=== PATIENT | female | born 1945 | race Caucasian/White ===

== ENCOUNTER 2016-07-05 10:19 | Inpatient (IN) | payer OTHER ==
[~2016-07-05 10:19] MED LIST: ACETAMINOPHEN 325 MG TAB PO ONE; CEFAZOLIN 2 GM/DEXTR 100 ML IV ONE; CHLORHEXIDINE GLUC HIBICLENS 118 ML BTL TP ONE; DEXAMETHASONE 4 MG/ML VIAL IVP ONE; FAMOTIDINE 20 MG TAB PO ONE; ROPI/epiNEPH/KETOROLAC JOINT COCKTAIL IU ONE; SKIN ADHESIVE (DERMABOND) 1 EACH TP ONE; TRANEXAMIC ACID 3,000 MG in NS 50 ML IRR ONE; TRANEXAMIC ACID 3,000 MG/50 ML BAG IRR ONE
[2016-07-05] MEDS ORDERED: ACETAMINOPHEN 325 MG TAB ONE (10:40)
[2016-07-05] MEDS ORDERED: FAMOTIDINE 20 MG TAB ONE (10:40)
[2016-07-05] MEDS ORDERED: CEFAZOLIN 2 GM/DEXTROSE/100 ML BAG IV ONE (10:40)
[2016-07-05] MEDS ORDERED: DEXAMETHASONE 4 MG/ML VIAL ONE (10:40)
[2016-07-05] MEDS ORDERED: ONDANSETRON 4 MG/2 ML VIAL ONE (10:51)
[2016-07-05] MEDS ORDERED: MIDAZOLAM 2 MG/2 ML VIAL ONE ×2 (10:51→11:56)
[2016-07-05] MEDS ORDERED: fentaNYL 100 MCG/2 ML INJ ONE (10:51)
[2016-07-05] MEDS ORDERED: PROPOFOL/EMULSION 500 MG/50 ML BOTTLE IV ONE (10:51)
[2016-07-05] MEDS ORDERED: LIDOCAINE 2% 100 MG/5 ML SYR IVP ONE (10:53)
[2016-07-05] MEDS ORDERED: LR 1,000 ML IV ONE (11:06)
[2016-07-05] MEDS ORDERED: SKIN ADHESIVE (DERMABOND) 1 EACH TP ONE (11:49)
[2016-07-05] MEDS ORDERED: BISACODYL 10 MG SUPP PR PRN (12:51)
[2016-07-05] MEDS ORDERED: LACTULOSE 20 GM/30 ML UDCUP PO PRN (12:51)
[2016-07-05] MEDS ORDERED: diphenhydrAMINE 25 MG CAP PO PRN (12:51)
[2016-07-05] MEDS ORDERED: CYCLOBENZAPRINE 10 MG TAB PO PRN (12:51)
[2016-07-05] MEDS ORDERED: PROMETHAZINE HCL 25 MG/ML VIAL IVP PRN (12:51)
[2016-07-05] MEDS ORDERED: ONDANSETRON 4 MG/2 ML VIAL IVP PRN (12:51)
[2016-07-05] MEDS ORDERED: ONDANSETRON DISINTEGRATING 4 MG TAB PO PRN (12:51)
[2016-07-05] MEDS ORDERED: MAGNESIUM HYDROXIDE 30 ML UDCUP PO PRN (12:51)
[2016-07-05] MEDS ORDERED: DIPHENOXYLATE/ATROPINE LOMOTIL 1 TAB PO PRN (12:51)
[2016-07-05] MEDS ORDERED: TEMAZEPAM 15 MG CAP PO PRN (12:51)
[2016-07-05] MEDS ORDERED: PHARMACY PAIN CONSULT 1 EA MISC PRN (12:51)
[2016-07-05] MEDS ORDERED: POLYETHYLENE GLYCOL 3350 17 GM PKT PO PRN (12:51)
[2016-07-05] MEDS ORDERED: PROMETHAZINE HCL 25 MG SUPPR PR PRN (12:51)
[2016-07-05] MEDS ORDERED: METOCLOPRAMIDE 10 MG/2 ML VIAL IVP PRN (12:51)
--- NOTE | 2016-07-05 13:41 | POSTOPPROG ---
Post Op Note Date of Operation: 07/05/16 Surgeon: Arin Coleman Diagnostic Radiologic Technologist: Aruna Coleman PAc Anesthesiologist: Mehrdad Anesthesia: Spinal Pre-op Diagnosis: R hip DJD Post-op Diagnosis: same Indication: pain Procedure: R ESTHER Findings: DJD hip Inf/Abcess present in the surg proc area at time of surgery?: No EBL: 100-500
--- NOTE | 2016-07-05 15:18 | DX ---
AP pelvis, centered low. HISTORY: Postop. FINDINGS: Surgical changes of a right total hip arthroplasty are present. The acetabular and femoral components of the prosthesis are well seated, without complication. IMPRESSION: 1. Right hip arthroplasty without complication.
--- NOTE | 2016-07-05 15:19 | DX ---
Intraoperative fluoroscopy. July 05, 2016. HISTORY: Right hip arthroplasty. Discussion: 4.1 seconds of intraoperative fluoroscopy utilized by Dr. Coleman during right hip arth roplasty. IMPRESSION: 1. Intraoperative fluoroscopy during right hip arthroplasty.
[2016-07-05] MEDS: LR 1,000 ML IV SCH (15:45)
[2016-07-05] MEDS: oxyCODONE IR 5 MG TAB PO PRN ×3 (16:30→21:27)
[2016-07-05] MEDS: ACETAMINOPHEN 325 MG TAB PO SCH (18:20)
--- NOTE | 2016-07-05 20:54 | GOP ---
[f rep st] OPERATIVE REPORT Corrected report DATE OF OPERATION: 07/05/2016 SURGEON: Marian Coleman MD CARPENTRY SUPERVISOR: Aruna Coleman PA-C ANESTHESIA: Spinal. PREOPERATIVE DIAGNOSIS: Right hip osteoarthritis. POSTOPERATIVE DIAGNOSIS: Right hip osteoarthritis. PROCEDURE PERFORMED: Right total hip arthroplasty. FINDINGS: ESTIMATED BLOOD LOSS: 200 cc. INDICATIONS: The patient has progressively worsening arthritis of the hip which has failed medical management. The patient understands the treatment options including continued non-operative care and has selected surgical intervention. The patient has decided to undergo total hip arthroplasty via the direct anterior approach, understanding the risks of the procedure including , but not limited to, neurovascular injury, infection, persistent pain, component wear and loosening, deep venous thrombosis, pulmonary embolism, limb length inequality, hip instability (including dislocation), and intra-operative fractures. DESCRIPTION OF PROCEDURE: After proper identification of the patient including verification and marking the surgical site, the patient was brought to the operating room and placed in the supine position. All bony prominences were well padded. Anesthesia was induced without complication and intravenous prophylactic antibiotics were administered prior to skin incision. The operative leg was placed in the Trumpf Arch table extension and the well leg in a Yellofin leg olmstead. The patient was prepped and draped in the usual sterile fashion. The C-arm was draped for intra-operative fluoroscopy to check acetabular position, femoral component position including leg length and femoral offset. Attention was then drawn to surgical exposure of the hip. An incision was made with a #10 Bard Gage blade starting 3 cm lateral and 3 cm distal to the anterior superior iliac spine measuring 8-10 cm and coursing distally toward the greater trochanter. The skin and subcutaneous tissues were divided sharply down to the fascia hermilo. The fascia hermilo was incised in line with the skin incision exposing the underlying tensor fascia hermilo muscle. The muscle was bluntly elevated from the fascia and the first extracapsular Cobra retractor was placed laterally at the junction of the superior femoral neck and greater trochanter. The lateral femoral circumflex vessels were identified, cauterized , and divided with the Aquamantys bipolar cautery. The deep investing fascia of the TFL was divided to allow proper mobilization of the muscle preventing damage during the retraction. The reflected head of the rectus femoris muscle was elevated off the anterior hip capsule and a medial Cobra retractor was placed just proximal to the lesser trochanter. The anterior capsulotomy was made sharply from the superolateral acetabulum to the saddle junction of the superior femoral neck and greater trochanter, then coursing inferomedial towards the lesser trochanter. The retractors were then placed in the intracapsular position for femoral neck osteotomy. Corresponding to pre-operative templating, the osteotomy was made with the oscillating saw carefully protecting the greater trochanter and soft tissues. The femoral head was removed from the acetabulum with a corkscrew and confirmed to be severely arthritic with exposed bone, deformity and osteophytes. Similar findings were confirmed in the acetabulum. The Arch table extension was then placed in 40 degrees external rotation. Attention was then drawn to the acetabular preparation. After placement of the anterior and posterior Cobra retractors outside the labrum and intracapsular, the circumferential labrum was removed sharply. The foveal contents were then removed and hemostasis obtained with cautery. The first reamer selected was sized using the removed femoral head. Reaming began with medialization and then commenced in 2 mm increments at 45 degrees of abduction and 15 degrees of anteversion using fluoroscopic navigation. Reaming ceased 1 mm less than the definitive acetabular component and corresponded to the pre-operative templating. The final acetabular component was inserted using fluoroscopy to achieve proper orientation yielding excellent purchase and stability in the acetabulum. The final acetabular liner was then placed and its seating confirmed. Attention was then turned to the femur. The Arch table extension was placed in extension and adduction, delivering the osteotomized femoral neck into the wound. A 2-pronged femoral elevator was placed at the calcar and another at the tip of the greater trochanter. The posterolateral capsule was released with cautery allowing mobilization of the femur lateral and anterior for preparation. The external rotators were visualized and preserved. A curette and rongeur were used to open the starting point for broaching. Serial broaching started with the #0 broach and ended with the broach that exhibited excellent fit in the proximal femur. A change in pitch during mallet strikes was accompanied by the inability to advance the broach any further. The trial reduction was performed and fluoroscopic navigation was utilized to check limb length. Adjustments were made to equalize limb length accordingly. After the final trials were accepted they were removed and the wound was copiously lavaged. The femoral component was seated to the same depth as the final broach and the femoral head was impacted onto the clean trunnion. The hip was then reduced for the final time and once more fluoroscopy was used to check that limb length equality was achieved. The wound was irrigated and closed in layers, the fascia hermilo with 2-0 Quill, the subcutaneous tissue with 2-0 Quill, and the skin with Dermabond. Sterile dressings were applied. Final sharps and sponge counts were accurate. The patient was then transferred to a hospital bed and brought to the recovery room in stable condition. IMPLANTS: Accolade II size 5 at 127, acetabular component a 48 mm Tritanium. The liner is a Trident X3 32 mm. The head is a Biolox Delta 32 mm -4. /[id number]/MODL [place] 07/06/16, drew MTDNarayan
[2016-07-05] MEDS: SENNOSIDES/DOCUSATE SODIUM TAB PO SCH (21:26)
[2016-07-05] MEDS: FAMOTIDINE 20 MG TAB PO SCH (21:27)
[2016-07-05] MEDS: ceFAZolin 2 GM/DEXTROSE 100 ML IV SCH (21:28)
[2016-07-06] MEDS: ACETAMINOPHEN 325 MG TAB PO SCH ×5 (00:20→23:40)
[2016-07-06] MEDS: LR 1,000 ML IV SCH (00:21)
[2016-07-06] MEDS: ASPIRIN 325 MG TAB PO SCH ×2 (00:23→09:07)
[2016-07-06] MEDS: ceFAZolin 2 GM/DEXTROSE 100 ML IV SCH (05:21)
[2016-07-06 05:34] LABS: HEMOGLOBIN 10.3 g/dL (12.6-16.3)
[2016-07-06] MEDS: FAMOTIDINE 20 MG TAB PO SCH ×2 (09:07→20:30)
[2016-07-06] MEDS: SENNOSIDES/DOCUSATE SODIUM TAB PO SCH ×2 (09:07→20:29)
--- NOTE | 2016-07-06 09:20 | SOAPPROG ---
SOAP Progress Note Assessment/Plan: Assessment: Patient is doing well POD 1 s/p R ESTHER 1.Pain management: pain is well controlled on oral pain meds. patient reports no pain today, tylenol and celebrex may be enough. Would recommend limiting narcotics if possible as patient has had nausea issues. 2.Anemia: level is expected initially postop. Asymptomatic. Cont to monitor for symptoms 3.VTE ppx: recommend aspirin 325mg daily. Cont ANANYA hollise and SCD 4. d/c planning: d/c to home today vs tomorrow pending improvement in nausea. 5. nausea: recommend zofran. limit narcotics if possible 6. hypotension: recommend 1L NS bolus. Plan: 07/06/16 09:17 Subjective: Dena is resting comfortably in a chair today. states mild pain this morning, denies SOB, chest pain. Has had issues with emesis and nausea since surgery. mild lightheadedness Objective: Vital Signs Temp Pulse Resp BP Pulse Ox 36.4 C 79 18 81/54 L 94 07/06/16 07:37 07/06/16 07:37 07/06/16 07:37 07/06/16 07:37 07/06/16 07:37 Laboratory Results 07/06/16 05:05 07/05/16 07/06/16 07/07/16 05:59 05:59 05:59 Intake Total 3950 Output Total 1675 Balance 2275 RLE: incision dressing is clean and dry, NVI, +pf/df ICD10 Worksheet Patient Problems: Problems Problem Status Diagnosed Primary localized osteoarthritis of right hip Acute
[2016-07-06] MEDS ORDERED: NS 1,000 ML IV ONE (09:30)
--- NOTE | 2016-07-06 14:21 | GDS ---
[f rep st] DISCHARGE SUMMARY ADMISSION DIAGNOSIS: Right hip osteoarthritis. DISCHARGE DIAGNOSIS: Right hip osteoarthritis. PROCEDURE: Right total hip arthroplasty. VTE PROPHYLAXIS: Aspirin recommended for 3 weeks daily. BRIEF DESCRIPTION OF HOSPITAL STAY: Patient was admitted for an elective joint arthroplasty. The pa tient tolerated the procedure well and has passed physical therapy. The patient was given appropriat e antibiotic prophylaxis and venous thromboembolism prophylaxis. The patient's pain was well control led on oral pain medication, patient was holding down food, and had urinated. Decision was made to d ischarge the patient. The patient was given post-operative prescriptions pre-operatively. PLAN: To follow up with Dr. Coleman at [facility] in 2 to 3 weeks. /[id number]/MODL
[2016-07-07 04:59] LABS: HEMATOCRIT 31.7 % (38.0-47.0); HEMOGLOBIN 10.6 g/dL (12.6-16.3)
[2016-07-07] MEDS: ACETAMINOPHEN 325 MG TAB PO SCH ×2 (05:40→11:19)
--- NOTE | 2016-07-07 07:19 | SOAPPROG ---
SOAP Progress Note Assessment/Plan: Assessment: Patient is doing well POD 2 s/p R ESTHER 1.Pain management: pain is well controlled on oral pain meds. patient reports no pain today, tylenol and celebrex may be enough. Would recommend limiting narcotics if possible as patient has had nausea issues. 2.Anemia: level is expected initially postop. Asymptomatic. Cont to monitor for symptoms 3.VTE ppx: recommend aspirin 325mg daily. Cont ANANYA leiva and SCD 4. d/c planning: d/c to home today 5. nausea: resolved 6. hypotension: resolved Plan: 07/06/16 09:17 07/07/16 07:18 Subjective: jassi is doing well this morning. states nausea has resolved. would like to go home today. mild pain. some thigh pain. Objective: Vital Signs Temp Pulse Resp BP Pulse Ox 36.9 C 85 16 97/60 L 94 07/06/16 23:35 07/07/16 04:00 07/07/16 04:00 07/07/16 04:00 07/07/16 04:00 Laboratory Results 07/07/16 04:36 07/06/16 07/07/16 07/08/16 05:59 05:59 05:59 Intake Total 3950 500 Output Total 1675 1200 Balance 2275 -700 RLE: incision dressing is clean and dry, NVI, +pf/df ICD10 Worksheet Patient Problems: Problems Problem Status Diagnosed Primary localized osteoarthritis of right hip Acute
[2016-07-07] MEDS: SENNOSIDES/DOCUSATE SODIUM TAB PO SCH (07:56)
[2016-07-07] MEDS: FAMOTIDINE 20 MG TAB PO SCH (07:57)
[2016-07-07] MEDS: ASPIRIN 325 MG TAB PO SCH (07:57)
[2016-07-07 08:30] VITALS: BP 100/61; PULSE 91; RESP 14; TEMP 97.5; O2SAT 91
== END 2016-07-07 11:54 | disposition home or self-care (01) | DRG 470 ==
LOC: F3E 10:19 → F3N 11:52
PROVIDERS: ADMIT Orthopaedic Surgery; ATTEND Orthopaedic Surgery
PROC: 0SR904Z Replacement of Right Hip Joint with Ceramic on Polyethylene Synthetic Substitute, Open Approach (ICD-10-PCS; principal; 2016-07-05 12:15)
DX: M16.11 Unilateral primary osteoarthritis, right hip (principal)
CPT/HCPCS: 97116-GP; 97161-GP; 97165-GO; 97530-GP; G8978-GP-CK; G8979-GP-CI; G8980-GP-CI; G8987-GO-CI; G8988-GO-CI; G8989-GO-CI; J0171; J0690; J1100; J1885; J2001; J2250; J2405; J2704; J2795; J3010

== ENCOUNTER → 2017-01-08 | Outpatient (CLI) | payer OTHER | LOC: FIMAGING 07:35 | PROVIDERS: ATTEND Internal Medicine | DX: Z12.31 Encounter for screening mammogram for malignant neoplasm of breast (principal) | CPT/HCPCS: G0202 ==

== ENCOUNTER → 2017-02-07 | Outpatient (CLI) | payer OTHER | LOC: FIMAGING 13:22 | PROVIDERS: ATTEND Internal Medicine Endocrinology, Diabetes & Metabolism | DX: Z13.820 Encounter for screening for osteoporosis (principal); M81.0 Age-related osteoporosis without current pathological fracture ==

== ENCOUNTER 2018-02-13 08:40 | Emergency (ER) | payer OTHER ==
[2018-02-13 08:47] VITALS: BP 117/79
[2018-02-13] MEDS ORDERED: CYCLOBENZAPRINE 10 MG TAB PO ONE (09:16)
[2018-02-13] MEDS ORDERED: DEXAMETHASONE 4 MG TAB PO ONE (09:16)
--- NOTE | 2018-02-13 09:17 | EDPHY ---
H & P Stated Complaint: Lower back pain after standing up from yardwork yesterday Time Seen by Provider: 02/13/18 09:17 HPI/ROS: HPI: This is a 72-year-old female who presents with Chief Complaint: Low back strain and spasm Location: Lumbar back Quality: Spasm Duration: Since yesterday afternoon Signs and Symptoms: No bleeding, no radiation, no numbness, no weakness, no tingling, no incontinence, + decreased range of motion, no swelling, + pain, no fever Timing: Gradual onset Severity: 11/25 Context: Patient reports that she was performing yd work yesterday and believes that she may have over did it as she started to experience a gradual onset adverse several hours of lumbar back discomfort on either side of her spine. Patient reports that she started to feel stiff and had decreased range of motion of flexion, extension and rotation. She is walking with a slow wide gait. She reports that this has happened to her in the past when she"over did it in the yd." She was prescribed muscle relaxers by primary care provider with good result. She took Tylenol yesterday afternoon and Tylenol p.m. Last night. She reports that she woke up feeling good but then started to get dressed and bent over to put her pants on and felt a pulling sensation in the left greater than right buttock bilaterally in her lumbar back. She denies any change in bowel or bladder habits. She was able to use the restroom including a bowel movement this morning without any difficulty. She denies any urinary symptoms, fever, abdominal pain, no vomiting. She has no radiculopathy or weakness. She has never had imaging of her lower back before. Modifying Factors: Tylenol with transient relief Comment: ROS: see HPI Constitutional: No fever, no chills, no weight loss Eyes: No blurred vision Respiratory: No shortness of breath, no cough Cardiovascular: No chest pain Gastrointestinal: No nausea, no vomiting no diarrhea Genitourinary: No dysuria Extremities: No myalgias Neurologic: No weakness, no numbness Skin: No rashes Hematologic: No bruising, no bleeding MEDICAL/SURGICAL/SOCIAL HISTORY: Medical history: Osteoporosis last DEXA scan the last year Surgical history: Right hip replacement Social history: Retired, , nonsmoker. CONSTITUTIONAL: Extremely polite and cooperative elderly white female who appears younger than stated age, awake and alert, no obvious distress HEENT: Atraumatic and normocephalic. NECK: supple, no midline tenderness, flexion 45 degrees, extension 45 degrees, right and left lateral flexion 45 degrees. No meningismus. Cardiovascular: Normal S1/S2, regular rate, regular rhythm, without murmur rub or gallop. PULMONARY/CHEST: Symmetrical and nontender. no crepitus. Clear to auscultation bilaterally. Good air movement. No accessory muscle usage. ABDOMEN: Soft, nondistended, nontender, no ecchymosis. PELVIC: no pain with rocking; bilateral hips flexion 125 degrees, extension 30 degrees, with no pain internal rotation and no pain external rotation. BACK: No midline tenderness, reproducible bilateral paraspinous muscle tenderness; + paraspinous spasm, deep tendon reflexes 2/2, mild pain with bilateral straight leg raise, No foot drop. Achilles reflexes are equal bilaterally. Able to walk on heels and toes with some difficulty secondary to pain. EXTREMITIES: 2/2 pulses, strength 5/5, DIP/PIP/MCP flexion/extension intact with good light touch sensation. no deformities, no clubbing, no cyanosis or edema. NEUROLOGICAL: no focal neuro deficits. GCS 15. Light touch sensation intact. SKIN: Warm and dry, no erythema. no rash. Good capillary refill. Source: Patient Exam Limitations: No limitations - Medical/Surgical History Hx Asthma: No Hx Chronic Respiratory Disease: No Hx Diabetes: No Hx Cardiac Disease: No Hx Renal Disease: No Hx Cirrhosis: No Hx Alcoholism: No Hx HIV/AIDS: No Hx Splenectomy or Spleen Trauma: No Other PMH: osteop. - Social History Smoking Status: Never smoked Constitutional: Initial Vital Signs Temperature (C) 36.9 C 02/13/18 08:44 Heart Rate 81 02/13/18 08:44 Respiratory Rate 18 02/13/18 08:44 Blood Pressure 117/79 02/13/18 08:44 O2 Sat (%) 96 02/13/18 08:44 O2 Delivery Mode Room Air Allergies/Adverse Reactions: No Known Allergies Allergy (Unverified 07/18/14 23:31) Home Medications: Medication Instructions Recorded ALENDRONATE SODIUM 02/13/18 Cyclobenzaprine [Flexeril 10 MG 10 mg PO Q8 PRN #15 tab 02/13/18 (*)] methylPREDNISolone [Medrol Dose 1 each PO AD #0 ea 02/13/18 Arie] Medical Decision Making - Diagnostics Imaging Results: Imaging Impressions Lumbar Spine X-Ray 02/13/18 09:17 Impression: 1. 30% L4-L5 spondylolisthesis. 2. Cholelithiasis versus calcified mesenteric nodes versus right urinary tract calcification . ED Course/Re-evaluation: Vital signs reviewed and stable upon arrival. Patient appears to be having more lumbar muscle strain and spasm. We did discuss obtaining MRI lumbar but she has no neurological deficits and wishes to hold off if at all possible which I feel is reasonable. Decision was made to obtain lumbosacral x-ray. I did give her Decadron 8 mg p.o. And Flexeril 10 mg. 0940: No sacral x-ray my read via PAC shows stay disc space narrowing and degenerative changes most prominent L4-L5. 1015: Reassessed patient who reports improvement in discomfort and increased range of motion. She will be discharged with Flexeril and Medrol Dosepak. She was advised if symptoms continue to persist that it is recommended that she obtain an outpatient MRI of her lumbar spine. She is ambulatory at discharge with no ataxia and adequately controlled pain. No signs of neurovascular compromise/tenting of skin/compartment syndrome/ extremities and joints examined above and below area of concern and are neurovascularly intact/epidural hematoma/diskitis/cauda equina syndrome. This patient was seen under the supervision of my secondary supervising physician. I evaluated care for this patient independently. Discussed this patient with Dr. Cornejo. Differential Diagnosis: Back pain including but not limited to muscular pain, herniated disc, spine fracture, intra-abdominal causes and urinary tract infection. - Data Points Medications Given: Discontinued Medications Cyclobenzaprine HCl (Flexeril) 10 mg PO EDNOW ONE Stop: 02/13/18 09:17 Last Admin: 02/13/18 09:27 Dose: 10 mg Dexamethasone (Decadron) 8 mg PO EDNOW ONE Stop: 02/13/18 09:17 Last Admin: 02/13/18 09:26 Dose: 8 mg Departure - Departure Disposition: Home, Routine, Self-Care Clinical Impression: Spondylolisthesis at L4-L5 level, Lumbar degenerative disc disease Strain of lumbar paraspinal muscle Qualifiers: Encounter type: initial encounter Qualified Code(s): S39.012A - Strain of muscle, fascia and tendon of lower back, initial encounter Condition: Good Instructions: Low Back Strain (ED), Degenerative Disc Disease (ED), Spondylolisthesis (ED) Additional Instructions: Take Tylenol 650 mg every 4 hours and/or Ibuprofen 600 mg every 8 hours with food as needed for pain. Use Flexeril every 8 hours as needed for muscle spasms. Take Medrol Dose Arie as directed. Drink plenty of water while taking this medication. Apply heating pad or moist heat for 30 minutes at a time; 2-3 times per day for the next 1-2 days. Perform only low-impact walking activities. If symptoms continue to persist after 5-7 days, follow-up with primary care provider and discuss need for MRI lumbar spine outpatient. Return to the ER immediately if you have new or worsening back pain, fevers/ chills, flu like symptoms, incontinence or inability to urinate or defecate, weakness, paralysis, or any other symptom that concerns you Referrals: Rocio Adkins MD [Primary Care Provider] - 5-7 days, if not improved Prescriptions: Cyclobenzaprine [Flexeril 10 MG (*)] 10 mg PO Q8 PRN #15 tab PRN Reason: Spasms methylPREDNISolone [Medrol Dose Arie] 1 each PO AD #0 ea
== END 2018-02-13 09:49 | disposition home or self-care (01) ==
DX: S39.012A Strain of muscle, fascia and tendon of lower back, initial encounter (principal); X50.1XXA Overexertion from prolonged static or awkward postures, initial encounter; Y92.007 Garden or yard of unspecified non-institutional (private) residence as the place of occurrence of the external cause; M51.36 Other intervertebral disc degeneration, lumbar region

== ENCOUNTER → 2018-02-23 | Outpatient (CLI) | payer OTHER | LOC: FIMAGING 13:06 | PROVIDERS: ATTEND Internal Medicine | DX: Z12.31 Encounter for screening mammogram for malignant neoplasm of breast (principal) ==

== ENCOUNTER 2018-11-12 11:04 | Day surgery (SDC) | payer OTHER ==
--- NOTE | 2018-11-08 10:16 | GHP ---
[f rep st] PREOP HISTORY AND PHYSICAL DATE OF ADMISSION: 11/12/2018 DATE OF SURGERY: November 12. CHIEF COMPLAINT: Right forefoot pain. HISTORY OF PRESENT ILLNESS: Patient is a 72-year-old with history of forefoot pain and deformity. H er symptoms have been worsening over time, limiting her activities. MEDICATIONS: Include alendronate, Boostrix,celecoxib, cyclobenzaprine. ALLERGIES: She lists no drug allergies. PAST MEDICAL HISTORY: Unremarkable. PAST SURGICAL HISTORY: Positive for total hip arthroplasties. SOCIAL HISTORY: Negative for tobacco use. PHYSICAL EXAMINATION: GENERAL: She is alert and oriented x3 in no acute distress. HEENT: Head is normocephalic. Pupils equal, round, reactive to light. Extraocular eye movements intact. NECK: Spivey pple. No JVD or lymphadenopathy. CHEST: Clear to auscultation. HEART: Regular rate and rhythm. No murmurs or gallops. ABDOMEN: Soft, nontender, nondistended. GENITAL/RECTAL/BREASTS: Deferred. EXTREMITIES: Hypermobile hallux valgus on the right foot with tenderness and diminished range of mo tion in her 1st MTP joint. IMPRESSION: 1. Hypermobile hallux valgus/symptomatic bunion. 2. Right hallux rigidus. PLAN: The patient is scheduled to undergo modified Lapidus procedure and 1st MTP implant hemiarthrop lasty. /[id number]/MODL
[2018-11-12] MEDS ORDERED: LR 1,000 ML IV ONE (11:11)
[2018-11-12] MEDS ORDERED: ceFAZolin 2 GM/DEXTROSE 100 ML IV ONE (11:51)
--- NOTE | 2018-11-12 11:55 | POSTOPPROG ---
Post Op Note Date of Operation: 11/12/18 Surgeon: Jeanmarie Urias Anesthesia: LMA Pre-op Diagnosis: R hallux valgus/bunion, hallux rigidus Post-op Diagnosis: same Procedure: R lapidus, 1st MTP implant hemiarthroplasty Inf/Abcess present in the surg proc area at time of surgery?: No EBL: Minimal
[2018-11-12] MEDS ORDERED: LIDOCAINE 1% 5 ML SDV ONE (12:01)
[2018-11-12] MEDS ORDERED: BUPIVACAINE 0.5% 30 ML SDV ONE (12:02)
[2018-11-12] MEDS ORDERED: MIDAZOLAM 2 MG/2 ML VIAL ONE (12:12)
[2018-11-12] MEDS ORDERED: fentaNYL 100 MCG/2 ML INJ ONE (12:12)
[2018-11-12] MEDS ORDERED: PROPOFOL 200 MG/20 ML VIAL ONE ×2 (12:14→13:30)
--- NOTE | 2018-11-12 12:16 | PDHPUP ---
History & Physical Update H&P update statement: This history and physical update is based on an assessment of the patient which was completed after admission or registration (within 24 hours), but prior to the surgery/procedure. H&P update: H&P reviewed & patient examined, no change in patient's condition since H&P completed
[2018-11-12] MEDS ORDERED: ROPIVACAINE HCL 150 MG/30 ML INJ ONE (12:20)
[2018-11-12] MEDS ORDERED: DEXAMETHASONE 4 MG/ML VIAL ONE (13:16)
[2018-11-12] MEDS ORDERED: ONDANSETRON 4 MG/2 ML VIAL ONE (13:34)
[2018-11-12] MEDS ORDERED: ACETAMINOPHEN 500 MG TAB PO PRN (13:40)
[2018-11-12] MEDS ORDERED: LR 500 ML IV PRN (13:40)
[2018-11-12] MEDS ORDERED: oxyCODONE IR 5 MG TAB PO PRN (13:40)
[2018-11-12] MEDS ORDERED: METOCLOPRAMIDE 10 MG/2 ML VIAL IVP PRN (13:40)
[2018-11-12] MEDS ORDERED: ALBUTEROL 3 ML DEYVIAL IH PRN (13:40)
[2018-11-12] MEDS ORDERED: HYDROCODONE/APAP 5/325 TAB PO PRN (13:40)
[2018-11-12] MEDS ORDERED: HYDROmorphONE/DILAUDID 1 MG/ML INJ IVP PRN (13:40)
[2018-11-12] MEDS ORDERED: PROMETHAZINE HCL 25 MG/ML INJ IVP PRN (13:40)
[2018-11-12] MEDS ORDERED: fentaNYL 100 MCG/2 ML INJ IVP PRN (13:40)
[2018-11-12] MEDS ORDERED: ONDANSETRON 4 MG/2 ML VIAL IVP PRN (13:40)
[2018-11-12] MEDS ORDERED: NALOXONE HCL 0.4 MG/ML INJ IVP PRN (13:40)
--- NOTE | 2018-11-12 13:40 | PDANEPAE ---
ANE History of Present Illness right foot bunion ANE Past Medical History - Cardiovascular History Hx Hypertension: No Hx Arrhythmias: No Hx Chest Pain: No Hx Coronary Artery / Peripheral Vascular Disease: No Hx CHF / Valvular Disease: No Hx Palpitations: No - Pulmonary History Hx COPD: No Hx Asthma/Reactive Airway Disease: No Hx Recent Upper Respiratory Infection: No Hx Oxygen in Use at Home: No Hx Sleep Apnea: Yes Sleep Apnea Screening Result - Last Documented: Positive Pulmonary History Comment: ASTHMATIC BRONCHITIS DURING CHILDHOOD - Neurologic History Hx Cerebrovascular Accident: No Hx Seizures: No Hx Dementia: No - Endocrine History Hx Diabetes: No - Renal History Hx Renal Disorders: No - Liver History Hx Hepatic Disorders: No - Neurological & Psychiatric Hx Hx Neurological and Psychiatric Disorders: No - Cancer History Hx Cancer: Yes Cancer History Comment: cervical ca 1977 with cone bx in 1978 - Congenital Disorder History Hx Congenital Disorders: No - GI History Hx Gastrointestinal Disorders: No - Other Health History Other Health History: reading glasses - Chronic Pain History Chronic Pain: Yes (right foot) - Surgical History Prior Surgeries: 2018 bilateral wrist carpal tunnel surgeries. 2017 right ESTHER with [place]. [facility] BX. TONSILLECTOMY. D&C. . COLONOSCOPY ANE Review of Systems Review of Systems: - Exercise capacity METS (RN): 4 METS ANE Patient History - Allergies Allergies/Adverse Reactions: No Known Allergies Allergy (Verified 10/31/18 11:45) - Home Medications Home medications: home medication list seen and reviewed Home Medications: ALENDRONATE SODIUM 02/13/18 [Last Taken 11/10/18] Herbals/Supplements -Info Only 10/31/18 [Last Taken 11/11/18] - NPO status NPO Since - Liquids (Date): 11/11/18 NPO Since - Liquids (Time): 22:00 NPO Since - Solids (Date): 11/12/18 NPO Since - Solids (Time): 19:30 - Anes Hx Anes Hx: no prior problems - Smoking Hx Smoking Status: Never smoked - Family Anes Hx Family Hx Anesthesia Complications: none ANE Labs/Vital Signs - Vital Signs Blood Pressure: 113/69 Heart Rate: 80 Respiratory Rate: 16 O2 Sat (%): 95 Height: 160.02 cm Weight: 57.153 kg ANE Physical Exam - Airway Neck exam: FROM Mallampati Score: Class 1 Mouth exam: normal dental/mouth exam - Pulmonary Pulmonary: no respiratory distress - Cardiovascular Cardiovascular: regular rate and rhythym - ASA Status ASA Status: II ANE Anesthesia Plan Anesthesia Plan: GA w LMA Regional Anesthesia: single shot NB, adductor canal FNB, popliteal SNB Urgent/Emergent Case: Anes eval completed preop but documented later for safe timely pt care
--- NOTE | 2018-11-12 13:40 | POSTANESTH ---
Post Anesthetic Evaluation Cardiovascular Status: Normal, Stable Respiratory Status: Normal, Stable Level of Consciousness/Mental Status: Can Participate in Eval, Moderately Sleepy Pain Control: Adequate, Prn Tx Ordered Nausea/Vomiting Control: Adequate, Prn Tx Ordered Complications Possibly Related to Anesthesia: None Noted
--- NOTE | 2018-11-12 15:51 | GOP ---
[f rep st] OPERATIVE REPORT DATE OF OPERATION: 11/12/2018 SURGEON: Jeanmarie Urias MD ANESTHESIA: General plus popliteal and saphenous nerve blocks performed by the anesthesiologist at m y request for postoperative pain management. PREOPERATIVE DIAGNOSIS: 1. Right hallux valgus/symptomatic bunion. 2. Right hallux rigidus. POSTOPERATIVE DIAGNOSIS: 1. Right hallux valgus/symptomatic bunion. 2. Right hallux rigidus. PROCEDURE PERFORMED: 1. Right modified Lapidus bunionectomy (first tarsometatarsal joints and intermetatarsal arthrodesis , bunionectomy, distal soft tissue reconstruction). 2. Right first metatarsophalangeal cheilectomy, debridement, and implant hemiarthroplasty (Cartiva). FINDINGS: ESTIMATED BLOOD LOSS: Minimal. INDICATIONS: The patient is a 72-year-old with history of progressive forefoot pain and deformity. Clinically and radiographically, she is noted to have hallux valgus deformity with advanced arthritic changes in her 1st MTP joint. Based on her persistence of symptoms refractory to nonoperative treat ment, she is interested in pursuing operative treatment. From an operative standpoint, correction of her bunion deformity with modified Lapidus procedure and concomitant 1st MTP implant hemiarthroplast y was recommended. The patient acknowledged she understood the potential risks of the operation incl uding, but not limited to, bleeding, infection, neurovascular damage including loss of limb or limb f unction, malunion, nonunion, need for hardware removal, pain, functional limitations, recurrent defor mity despite operative treatment, and anesthetic risks. She acknowledged she understood the potentia l risks, planned procedure, and postoperative plan well. Had all questions answered prior to surgery . She gave her consent for the operative procedure. DESCRIPTION OF PROCEDURE: Patient brought in the operating room after IV antibiotics were administer ed. She was placed in a supine position where general anesthetic was administered. Prior to being b rought back to the operating room, popliteal and saphenous nerve blocks were performed by the anesthe siologist at my request for postoperative pain management. A tourniquet was placed on the right thig h, and the right lower extremity was prepped and draped in standard sterile fashion. After marking t he incision, Zhao wrap exsanguination, the tourniquet was inflated to 250. A longitudinal incision wa s made along the dorsal aspect 1st MTP joint. Skin and subcutaneous tissue were sharply incised. Sh amy dissection was carried adjacent to the extensor hallucis longus tendon. The capsule was longitud inally split and reflected dorsally and plantarly. End-stage central chondral loss was noted on the 1st metatarsal head. Utilizing the saw and rongeur, bony prominences on the dorsal aspect of the 1st metatarsal and proximal phalanx were removed. The bony prominence on the medial aspect of the 1st m etatarsal was removed with a saw. Dissection was carried laterally, where the capsule was released, and then the sesamoid and metatarsal ligaments were further released with tenotomy scissors. A guide pin from the Cartiva implant was placed in the central aspect of the metatarsal head. Based on intr aoperative templating, an 8 mm reamer was utilized to create a trough for implant placement. An 8 mm Cartiva was impacted into place. The joint was noted to have full motion without any impingement. A longitudinal incision was made along the dorsal aspect of 1st TMT region. Sharp dissection was car ried adjacent to the extensor hallucis longus tendon. The 1st TMT joint capsule was opened. All car tilage was denuded with a chisel and rongeur. In preparation for arthrodesis, subchondral bone was d rilled multiple times with a 2.0 mm drill bit and further roughened with a chisel. A 4 mm bur was ut ilized to create a trough on the dorsal aspect of the 1st metatarsal and medial cuneiform. With the 1st metatarsal held in a reduced position, 3.5 mm cortical screws were placed in lag fashion from the dorsal aspect of the 1st metatarsal in the plantar aspect of the medial cuneiform, dorsal aspect of the medial cuneiform to the plantar aspect of the 1st metatarsal, and medial aspect of the 1st metata rsal base into the 2nd metatarsal base. Fluoroscopic views confirmed favorable hardware and arthrode sis position. A bur was utilized to create a trough on the dorsal aspect of the 1st TMT joint. Bone graft harvested from drill bit reamings was impacted as a "stress strain" relieving bone graft. Cap deven was then tightened with 2-0 Vicryl suture in interrupted fashion. Subcutaneous tissue was close d with 3-0 Vicryl suture in interrupted fashion. Skin closed with 4-0 nylon interrupted sutures. Wo unds were dressed with sterile Adaptic, 4 x 4, and Webril, and leg was placed in a below-knee splint. Patient tolerated the procedure well and was taken to the recovery room, extubated in stable condit ion postoperatively. All sponge, needle, and instrument counts were reported as being correct. DRAINS: None. COMPLICATIONS: None. PLAN: Patient will be discharged home nonweightbearing on her operative extremity. /[id number]/MODL
[2018-11-12 16:10] VITALS: BP 111/74
== END 2018-11-12 16:20 | disposition home or self-care (01) ==
LOC: FSGY 11:04
PROVIDERS: ATTEND Orthopaedic Surgery Foot and Ankle Surgery
PROC: 0QSN0ZZ Reposition Right Metatarsal, Open Approach (ICD-10-PCS; principal; 2018-11-12 12:15)
PROC: 0SRM0JZ Replacement of Right Metatarsal-Phalangeal Joint with Synthetic Substitute, Open Approach (ICD-10-PCS; principal; 2018-11-12 12:15)
DX: M21.611 Bunion of right foot (principal); M20.21 Hallux rigidus, right foot
CPT/HCPCS: C1713; J0690; J1100; J2250; J2405; J2704; J2795; J3010